=== PATIENT | female | born 1940 | race American Indian/Alaskan Native ===

== ENCOUNTER 2017-03-02 09:40 | Outpatient (CLI) | payer MEDICARE ==
--- NOTE | 2017-03-02 13:05 | Mammography Report ---
BONE DEXA:03/02/17 09:40:00 CLINICAL: Postmenopausal. No comparison. TECHNIQUE: Two site bone DEXA performed on an Hologic scanner. FINDINGS: The average BMD of the lumbar spine L1-L4 is 1.251g/cm squared with a T-score of +0.9 and a Z-score of +3.8. The average BMD of the left hip is 1.127g/cm squared with a T-score of +0.6 and a Z-score of +2.1. IMPRESSION: WHO classification: Normal with average fracture risk based on both spine and left hip measurements. RECOMMENDATION: Clinical correlation and routine screening. DEFINITIONS: BMD = Bone Mineral Density T-score = BMD related to mean peak bone mass of young adult (mean expressed in Standard Deviation) Z-score = Age matched BMD expressed in SD World Health Organization (WHO) Diagnostic Criteria Normal T-score > -1 SD Osteopenia T-score between -1 and -2.4 SD Osteoporosis T-score -2.5 SD or below NOTE: BMD is not the only risk factor for fracture. One should also consider factors such as the patient's age, risk of falling, previous osteoporotic fracture, family history of osteoporotic fractures, current smoker, and low body weight. Z-scores are not calculated if >80 years of age.
--- NOTE | 2017-03-02 14:22 | XRay Report ---
Chest 2 views: History: Sarcoidosis. Findings: Normal cardiomediastinal silhouette. The trachea is midline. Some calcific areas are noted in the right and left hilum. No adenopathy. No consolidation or pleural effusion. Scarring right upper lobe. Impression: No acute cardiopulmonary findings.
--- NOTE | 2017-03-02 15:37 | Mammography Report ---
BILATERAL DIGITAL SCREENING MAMMOGRAM with CAD: 03/02/17 09:40:00 CLINICAL: Routine screening. COMPARISON:None available. FINDINGS: The breasts are heterogeneously dense, which may obscure small masses.A scar marker villatoro a keloid at the upper right breast. Bilateral benign vascular calcifications. No mass, architectural distortion or suspicious calcifications. IMPRESSION: No mammographic evidence of malignancy. BI-RADS CATEGORY: 2 - - Benign RECOMMENDATION: Routine mammographic screening in one year. COMMENT: Patient follow-up letters are generated by our [employer] application.
== END 2017-03-02 09:41 | disposition home or self-care (01) ==
LOC: SPVWC 09:40
PROVIDERS: ATTEND Internal Medicine
DX: Z12.31 Encounter for screening mammogram for malignant neoplasm of breast (principal); N95.9 Unspecified menopausal and perimenopausal disorder; D86.9 Sarcoidosis, unspecified
CPT/HCPCS: 71020; 77080; G0202; 77067

== ENCOUNTER 2019-01-01 10:19 | Outpatient (CLI) | payer MEDICARE ==
--- NOTE | 2019-01-01 14:21 | Mammography Report ---
BILATERAL DIGITAL DIAGNOSTIC MAMMOGRAM with CAD and RIGHT BREAST ULTRASOUND: 01/01/19 CLINICAL: A right subareolar breast lump on clinical breast exam. The patient denies feeling a lump. COMPARISON:03/02/17 FINDINGS: There are bilateral scattered fibroglandular densities.No mass, architectural distortion or suspicious calcifications . The right subareolar breast is normal. Ultrasound of the subareolar right breast demonstrated normal fibroglandular and fatty structures. No mass, cyst or shadowing. IMPRESSION: Negative mammogram and negative targeted right breast ultrasound. BI-RADS CATEGORY: 1 - - Negative RECOMMENDATION: Clinical follow-up of the palpable area and routine mammographic screening based on ACS guidelines. ACR BI-RADS MAMMOGRAPHIC CODES: 0 = Needs additional imaging evaluation; 1 = Negative; 2 = Benign; 3 = Probably benign; 4 = Suspicious; 5 = Malignant; 6 = Known biopsy-proven malignancy COMMENT: 1. Dense breast tissue, i.e., adenosis, fibrocystic changes, etc., may obscure an underlying neoplasm. 2. Approximately 10% of cancers are not detected with mammography. 3. A negative mammography report should not delay biopsy if a clinically suspicious mass is present. COMMENT: Patient follow-up letters are generated by our [employer] application.
== END 2019-01-01 10:20 | disposition home or self-care (01) ==
LOC: SPVWC 10:19
PROVIDERS: ATTEND Internal Medicine
DX: N63.41 Unspecified lump in right breast, subareolar (principal)
CPT/HCPCS: 77066